=== PATIENT | male | born 1965 | race Caucasian/White ===

== ENCOUNTER 2017-06-29 09:55 | Inpatient (IN) | payer OTHER ==
[2017-06-29] MEDS ORDERED: KETOROLAC 15 MG/1 ML SDV IVP ONE (10:22)
[2017-06-29] MEDS ORDERED: KETAMINE 100 MG/10 ML SYR IVP ONE (10:22)
[2017-06-29] MEDS ORDERED: DEXAMETHASONE 4 MG/ML VIAL IVP ONE (10:22)
--- NOTE | 2017-06-29 10:22 | EDPHY ---
H & P Stated Complaint: L low back pain x 2 wks;seen @[facility] ED on Sat for same;felt pop in back t - Personal History Current Tetanus Diphtheria and Acellular Pertussis (TDAP): Yes Tetanus Vaccine Date: 2005 - Medical/Surgical History Other PMH: chronic back pain (followed at [facility]). S/P diskectomy - Social History Smoking Status: Former smoker Time Seen by Provider: 06/29/17 10:13 HPI/ROS: CHIEF COMPLAINT: New onset left low back pain left lower extremity radiculopathy HISTORY OF PRESENT ILLNESS: 52-year-old male history of chronic intermittent low back pain, states that 2 days ago developed left paraspinous back pain, subsequently seen at [facility]. No incontinence or retention at that time, was discharged. 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 He has no incontinence or retention. No malignancy history. No abdominal pain. No direct trauma or fall. The pain is reproducible with range of motion. PRIMARY CARE PROVIDER:[facility] REVIEW OF SYSTEMS: A ten point review of systems was performed and is negative with the exception of the items mentioned in the HPI PAST MEDICAL & SURGICAL HISTORY: Intermittent chronic low back pain. Daily methadone therapy. SOCIAL HISTORY: Nonsmoker. No IV drug use. PHYSICAL EXAM (Prior to examination, patient consented to physical exam, hands were washed and my usual and customary physical exam procedures followed) 1) GENERAL: Well-developed, well-nourished, alert and oriented. Appears uncomfortable, crying. 2) HEAD: Normocephalic, atraumatic 3) HEENT: Pupils equal, round, reactive to light bilaterally. Sclera anicteric. Nasopharynx, oropharynx, clear, no lesions. 4) NECK: Full range of motion, no meningeal signs. 5) LUNGS: Clear auscultation bilaterally, no wheezes, no rhonchi, no retractions. 6) HEART: Regular rate and rhythm, no murmur, no heave, no gallop. 7) ABDOMEN: No guarding, no rebound, no focal tenderness, negative McBurney's, negative Corona's, negative Rovsing's, negative peritoneal sign, 8) MUSCULOSKELETAL: Moving all extremities, no focal areas of tenderness, no obvious trauma. No peripheral edema or discoloration. 9) BACK: [tender to palpation left paraspinous region. Positive straight leg lift test left side approximately 10 degrees. No CVA tenderness, no midline vertebral tenderness, no fluctuance, no step-off, no obvious trauma, no visual or palpable abnormality. Patella, Achilles reflexes intact to bilateral strength 5/5 10) SKIN: No rash, no petechiae. 11) NEURO: Awake, alert, and oriented to person, place and time. Answers questions appropriately. There were no obvious focal neurologic abnormalities. No cerebellar dysfunction. Normal steady gait. Upper and lower extremities bilaterally with strength 5 / 5, reflexes 2+.. DIFFERENTIAL DIAGNOSIS: In no particular order, including but not limited to, fracture, sprain/strain, cauda equina, spinal infectious etiology. (Ambrocio Gray) Constitutional: Initial Vital Signs Temperature (C) 36.6 C 06/29/17 09:56 Heart Rate 108 H 06/29/17 09:56 Respiratory Rate 22 H 06/29/17 09:56 Blood Pressure 147/114 H 06/29/17 09:56 O2 Sat (%) 97 06/29/17 09:56 O2 Delivery Mode Nasal Cannula O2 (L/minute) 2 Allergies/Adverse Reactions: No Known Allergies Allergy (Verified 06/29/17 09:56) Home Medications: Medication Instructions Recorded Methadone HCl [Methadone HCl 10 mg 5 mg PO BID 06/29/17 (*)] Medical Decision Making - Diagnostics Imaging Results: Imaging Impressions Lumbar Spine MRI 06/29/17 10:19 Impression: Multilevel degenerative disk and degenerative joint disease of the lumbar spine as detailed above by level. Most significant level is at L3-L4 where there is a left posterolateral protrusion and annular tear causing moderate to severe left neural foraminal encroachment in addition to an extruded free fragment extending superior to the left posterior aspect of the L2 vertebral body compressing the L3 nerve root at the lateral recess. Results called and discussed with Ambrocio Gray on 06/29/2017, 13:07. ED Course/Re-evaluation: 10:20 a.m.: Patient appears quite uncomfortable has new onset of left lower extremity radiculopathy. Will plan on MRI, analgesia. Care of patient under supervision of secondary supervising physician Dr Bernal . 1:15 p.m.: The patient was re-evaluated with serial examinations. Given his history of methadone use we discussed some of the challenges and pain control. He has been given multiple medications emergency department including Toradol, ketamine, Valium, continues to complain of exquisite amount of pain, unable to ambulate or roll over in bed secondary to pain. He does not feel he can be discharged secondary to pain. We discussed admission for intractable low back pain. 1:30 p.m.: Consultation with neurosurgical PA who recommends admission to hospitalist and Dr. Fermín Hernandez will consult 1:35 p.m.: Consultation with hospitalist, Pastora, admit to Dr. Franklin (Ambrcoio Gray) I did not see this patient while he was in the emergency department. However his care was discussed with the PA while the patient was in the department. I agree with treatment plan and management. I a.m. the secondary supervising physician (Mario Bernal) - Data Points Laboratory Results: Laboratory Results 06/29/17 10:52 06/29/17 10:52 06/29/17 06/29/17 10:52 10:52 WBC 6.78 10^3/uL 10^3/uL (3.80-9.50) RBC 5.14 10^6/uL 10^6/uL (4.40-6.38) Hgb 15.7 g/dL g/dL (13.7-17.5) Hct 47.9 % % (40.0-51.0) MCV 93.2 fL fL (81.5-99.8) MCH 30.5 pg pg (27.9-34.1) MCHC 32.8 g/dL g/dL (32.4-36.7) RDW 13.3 % % (11.5-15.2) Plt Count 263 10^3/uL 10^3/uL (150-400) MPV 11.1 fL fL (8.7-11.7) Neut % (Auto) 65.8 % % (39.3-74.2) Lymph % (Auto) 21.7 % % (15.0-45.0) Mccone % (Auto) 8.0 % % (4.5-13.0) Eos % (Auto) 2.9 % % (0.6-7.6) Baso % (Auto) 1.2 % % (0.3-1.7) Nucleat RBC Rel Count 0.0 % % (0.0-0.2) Absolute Neuts (auto) 4.46 10^3/uL 10^3/uL (1.70-6.50) Absolute Lymphs (auto) 1.47 10^3/uL 10^3/uL (1.00-3.00) Absolute Monos (auto) 0.54 10^3/uL 10^3/uL (0.30-0.80) Absolute Eos (auto) 0.20 10^3/uL 10^3/uL (0.03-0.40) Absolute Basos (auto) 0.08 10^3/uL 10^3/uL (0.02-0.10) Absolute Nucleated RBC 0.00 10^3/uL 10^3/uL (0-0.01) Immature Gran % 0.4 % % (0.0-1.1) Immature Gran # 0.03 10^3/uL 10^3/uL (0.00-0.10) Sodium 143 mEq/L mEq/L (134-144) Potassium 4.5 mEq/L mEq/L (3.5-5.2) Chloride 104 mEq/L mEq/L (97-110) Carbon Dioxide 26 mEq/l mEq/l (22-31) Anion Gap 13 mEq/L mEq/L (8-16) BUN 24 mg/dL H mg/dL (7-23) Creatinine 0.9 mg/dL mg/dL (0.7-1.3) Estimated GFR > 60 Glucose 96 mg/dL mg/dL (70-100) Calcium 9.6 mg/dL mg/dL (8.5-10.4) Medications Given: Discontinued Medications Dexamethasone (Decadron Injection) 8 mg IVP EDNOW ONE Stop: 06/29/17 10:23 Last Admin: 06/29/17 10:35 Dose: 8 mg Diazepam (Valium Injection) 5 mg IVP EDNOW ONE Stop: 06/29/17 11:19 Last Admin: 06/29/17 11:24 Dose: 5 mg Ketamine HCl (Ketamine) 18.1 mg 0.2 mg/kg (18.1 mg) IVP EDNOW ONE Stop: 06/29/17 10:23 Last Admin: 06/29/17 10:35 Dose: 18.1 mg Ketorolac Tromethamine (Toradol) 15 mg IVP EDNOW ONE Stop: 06/29/17 10:23 Last Admin: 06/29/17 10:35 Dose: 15 mg Departure - Departure Disposition: [facility] Acute Clinical Impression: Intractable low back pain Condition: Fair
[2017-06-29] MEDS ORDERED: DIAZEPAM 10 MG/2 ML SYR IVP ONE (11:18)
[2017-06-29] MEDS ORDERED: ONDANSETRON 4 MG/2 ML VIAL IVP PRN (13:52)
[2017-06-29] MEDS ORDERED: ONDANSETRON DISINTEGRATING 4 MG TAB PO PRN (13:52)
[2017-06-29] MEDS ORDERED: HYDROmorphONE/DILAUDID 1 MG/ML INJ IVP PRN (13:52)
[2017-06-29] MEDS ORDERED: ACETAMINOPHEN 325 MG TAB PO SCH (14:15)
[2017-06-29] MEDS ORDERED: KETOROLAC 15 MG/1 ML SDV IVP SCH (15:00)
[2017-06-29 15:06] LABS: % IMMATURE GRANULYOCYTES 0.4 % (0.0-1.1); ABSOLUTE IMMATURE GRANULOCYTES 0.03 10^3/uL (0.00-0.10); ADD DIFF? NO; ADD MORPH? NO; ADD SCAN? NO; ATYPICAL LYMPHOCYTE FLAG 0 (0-99); FRAGMENT RBC FLAG 0 (0-99); HEMATOCRIT 47.9 % (40.0-51.0); HEMOGLOBIN 15.7 g/dL (13.7-17.5); LEFT SHIFT FLG 0 (0-99); LIPEMIA HEMOLYSIS FLAG 80 (0-99); MEAN CELL HEMOGLOBIN 30.5 pg (27.9-34.1); MEAN CELL HEMOGLOBIN CONCENTR. 32.8 g/dL (32.4-36.7); MEAN CELL VOLUME 93.2 fL (81.5-99.8); MEAN PLATELET VOLUME 11.1 fL (8.7-11.7); PLATELET CLUMPS FLAG 20 (0-99); PLATELET COUNT 263 10^3/uL (150-400); RED BLOOD CELL COUNT 5.14 10^6/uL (4.40-6.38); RED CELL DISTRIBUTION WIDTH 13.3 % (11.5-15.2)
[2017-06-29 15:12] LABS: ANION GAP 13 mEq/L (8-16); CALCIUM 9.6 mg/dL (8.5-10.4); CARBON DIOXIDE 26 mEq/l (22-31); CHLORIDE 104 mEq/L (97-110); CREATININE 0.9 mg/dL (0.7-1.3); GLOMERULAR FILTRATION RATE > 60; GLUCOSE 96 mg/dL (70-100); POTASSIUM 4.5 mEq/L (3.5-5.2); SODIUM 143 mEq/L (134-144)
[2017-06-29] MEDS: ACETAMINOPHEN 500 MG TAB PO SCH ×2 (15:34→22:24)
[2017-06-29] MEDS ORDERED: fentaNYL 100 MCG/2 ML INJ IVP PRN (16:00)
[2017-06-29] MEDS ORDERED: NS 1,000 ML IV SCH (16:00)
[2017-06-29] MEDS ORDERED: NALOXONE HCL 0.4 MG/ML INJ IVP PRN (16:00)
[2017-06-29] MEDS ORDERED: GABAPENTIN 300 MG CAP PO SCH (16:00)
--- NOTE | 2017-06-29 16:02 | PDGENHP ---
History and Physical - Chief Complaint back pain - History of Present Illness 52 yo male with h/o chronic low back pain presented to ED with increasing back pain and radicular symptoms. He had a discectomy at L5-S1 in 2002 and he thinks the doctor "screwed it up". He developed arachnoiditis and chronic pain. Last Thursday, he got out of bed and felt something pop, followed by severe back spasms. He went to [facility] and was discharged without imaging. He has developed pain in his left thigh, burning sensation, feels like needles in his skin. He also reports numbness and weakness in his left leg. His left leg gave out while going up some stairs and he fell. 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 He continues to have burning sensation going down his left leg. Denies loss of control of bowel or bladder. No fevers/chills. No CP, SOB, abdominal pain, N/V/D. History Information - Allergies/Home Medication List Allergies/Adverse Reactions: No Known Allergies Allergy (Verified 06/29/17 09:56) Home Medications: Methadone HCl [Methadone HCl 10 mg (*)] 5 mg PO BID 06/29/17 [Last Taken ] I have personally reviewed and updated: family history, medical history, social history, surgical history - Past Medical History Additional medical history: chronic back pain, on methadone 5 mg bid - Surgical History Additional surgical history: L5-S1 discectomy 2002 - Family History Positive for: non-pertinent - Social History Smoking Status: Former smoker Additional social history: Lives independently, . and daughter at bedside Review of Systems Review of Systems: ROS: 10pt was reviewed & negative except for what was stated in HPI & below Physical Exam Physical Exam: Temp Pulse Resp BP Pulse Ox 36.8 C 85 14 142/96 H 91 L 06/29/17 15:15 06/29/17 15:15 06/29/17 15:15 06/29/17 15:15 06/29/17 15:15 O2 (L/minute) 2 Constitutional: uncomfortable Eyes: PERRL Ears, Nose, Mouth, Throat: moist mucous membranes Cardiovascular: regular rate and rhythym Respiratory: no respiratory distress, clear to auscultation Gastrointestinal: normoactive bowel sounds, soft, non-tender abdomen Skin: warm Musculoskeletal: other (decreased strength LLE, decreased patellar reflex, but present 1+) Neurologic: AAOx3 Psychiatric: interacting appropriately Lab Data & Imaging Review 06/29/17 10:52 06/29/17 10:52 WBC 6.78 10^3/uL (3.80-9.50) 06/29/17 10:52 RBC 5.14 10^6/uL (4.40-6.38) 06/29/17 10:52 Hgb 15.7 g/dL (13.7-17.5) 06/29/17 10:52 Hct 47.9 % (40.0-51.0) 06/29/17 10:52 MCV 93.2 fL (81.5-99.8) 06/29/17 10:52 MCH 30.5 pg (27.9-34.1) 06/29/17 10:52 MCHC 32.8 g/dL (32.4-36.7) 06/29/17 10:52 RDW 13.3 % (11.5-15.2) 06/29/17 10:52 Plt Count 263 10^3/uL (150-400) 06/29/17 10:52 MPV 11.1 fL (8.7-11.7) 06/29/17 10:52 Neut % (Auto) 65.8 % (39.3-74.2) 06/29/17 10:52 Lymph % (Auto) 21.7 % (15.0-45.0) 06/29/17 10:52 Bradley % (Auto) 8.0 % (4.5-13.0) 06/29/17 10:52 Eos % (Auto) 2.9 % (0.6-7.6) 06/29/17 10:52 Baso % (Auto) 1.2 % (0.3-1.7) 06/29/17 10:52 Nucleat RBC Rel Count 0.0 % (0.0-0.2) 06/29/17 10:52 Absolute Neuts (auto) 4.46 10^3/uL (1.70-6.50) 06/29/17 10:52 Absolute Lymphs (auto) 1.47 10^3/uL (1.00-3.00) 06/29/17 10:52 Absolute Monos (auto) 0.54 10^3/uL (0.30-0.80) 06/29/17 10:52 Absolute Eos (auto) 0.20 10^3/uL (0.03-0.40) 06/29/17 10:52 Absolute Basos (auto) 0.08 10^3/uL (0.02-0.10) 06/29/17 10:52 Absolute Nucleated RBC 0.00 10^3/uL (0-0.01) 06/29/17 10:52 Immature Gran % 0.4 % (0.0-1.1) 06/29/17 10:52 Immature Gran # 0.03 10^3/uL (0.00-0.10) 06/29/17 10:52 Sodium 143 mEq/L (134-144) 06/29/17 10:52 Potassium 4.5 mEq/L (3.5-5.2) 06/29/17 10:52 Chloride 104 mEq/L (97-110) 06/29/17 10:52 Carbon Dioxide 26 mEq/l (22-31) 06/29/17 10:52 Anion Gap 13 mEq/L (8-16) 06/29/17 10:52 BUN 24 mg/dL (7-23) H 06/29/17 10:52 Creatinine 0.9 mg/dL (0.7-1.3) 06/29/17 10:52 Estimated GFR > 60 06/29/17 10:52 Glucose 96 mg/dL (70-100) 06/29/17 10:52 Calcium 9.6 mg/dL (8.5-10.4) 06/29/17 10:52 Assessment & Plan Assessment: Intractable low back pain (Acute) with radiculopathy - severe neural foraminal narrowing on MRI with an extruded free fragment. Neurosurgery consulted. Plan is for epidural for pain control and if not successful, they will proceed with operative intervention. NPO for now with IVF's. Pain control with home methadone dose, IV dilaudid. Will add Lyrica. He has not tolerated Gabapentin in the past. Full code Dispo - admit to inpt, will require >48 hrs hospitalization for ongoing management of acute radicular pain and possible surgical intervention
--- NOTE | 2017-06-29 16:43 | ASMTCASEMG ---
Living Arrangements What is your living Answers: With Spouse arrangement? Who do you live with? Type Of Residence What kind of residence do Answers: House you live in? Discharge Plan Comments Coordination Status Comments Notes: Pt is a 52 y/o man admitted for intractable low back pain. Therapies have been ordered. CM met w/ pt and family for dispo planning. Pt is a [place] and has [facility]. CM was informed that if he need auth we would need to call the [facility] and they would set up the auth. Needs are TBD at this time. CM available for changes. Plan: TBD Date Signed: 06/29/2017 04:43 PM Electronically Signed By:AKOSUA Morocho
[2017-06-29] MEDS ORDERED: TRIAMCINOLONE ACETONIDE 200 MG/5 ML MDV IM ONE (17:01)
[2017-06-29] MEDS ORDERED: LIDOCAINE 1% 300 MG/30 ML SDV ONE (17:01)
[2017-06-29] MEDS ORDERED: IOPAMIDOL (ISOVUE-M 300) 15 ML VIAL ONE (17:01)
[2017-06-29] MEDS ORDERED: fentaNYL 100 MCG/2 ML INJ ONE (17:23)
[2017-06-29] MEDS: D5W 1/2 NS W/ 20 KCl/L 1,000 ML IV SCH ×2 (18:14→22:26)
[2017-06-29] MEDS: HYDROmorphONE/DILAUDID 1 MG/ML INJ IVP PRN ×2 (18:17→23:56)
[2017-06-29] MEDS: methylPREDNISolone 4 MG TAB PO SCH ×2 (18:17→22:25)
[2017-06-29] MEDS ORDERED: methylPREDNISolone 4 MG TAB PO SCH (19:00)
[2017-06-29] MEDS: PREGABALIN 50 MG CAP PO SCH (22:24)
[2017-06-29] MEDS: METHADONE HCL 10 MG TAB PO SCH (22:25)
--- NOTE | 2017-06-30 02:22 | GCON ---
[f rep st] CONSULTATION CONSULTATION/HISTORY AND PHYSICAL. DATE OF CONSULTATION: 06/29/2017 Patient seen in the emergency department on 06/29/2017 in room 10 at 1420. CHIEF COMPLAINT: Left lower extremity pain that started 2 weeks ago. 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 Two weeks ago, he was in a storage unit when he was moving some light boxes 5-10 pounds, was doing some twisting and bending, and he felt some sudden onset of pain in his lower back. This last Thursday, his back pain had increased when he woke up in the morning. It hurt him so bad that he went to the emergency department at [facility]. They gave him some medicine and discharged him. There was no imaging at that time. Over the last 2 days, he has had worsening numbness and also has worsening left lower extremity pain, to the point where he is unable to walk on the left leg due to pain. He describes pain in his left buttock, left lateral thigh, and radiates into the anterior thigh. He is unable to walk due to the pain in the left lower extremity. He denies any right lower extremity symptoms. No loss of bowel or bladder control. No saddle numbness or numbness in his groin. He denies any upper extremity complaints such as numbness, tingling, weakness, or pain. No chest pain. No shortness of breath. No abdominal complaints. PAST MEDICAL HISTORY: 1. Significant for low back issues with prior L5-S1 surgery. 2. Chronic pain for which the patient takes methadone. PAST SURGICAL HISTORY: 1. L5-S1 microdiskectomy x2. 2. Left ACL reconstruction. 3. Compartment syndrome to forearm. MEDICATIONS: Methadone. ALLERGIES: No known drug allergies. FAMILY HISTORY: Reviewed and noncontributory. No history of stroke immediately. SOCIAL HISTORY: The patient is . Has 1 child. He does not smoke, does not drink any alcohol, and does not use any illicit drugs. IMMUNIZATIONS: Reported up to date. TRAVEL: No recent travel. REVIEW OF SYSTEMS: A 10-point review of systems is otherwise negative unless noted in HPI. PHYSICAL EXAMINATION: GENERAL: This is an awake, alert and oriented male, in no acute distress. MOST RECENT VITAL SIGNS: 128/88, MAP of 101, 92 heart rate , 16 respirations, 97% on 2 L, temperature 36.8. HEENT: Head is normocephalic , atraumatic. Pupils are equal, round, and reactive to light. EOMs intact. Full visual landry by confrontation. Ears are patent. Nose is patent. NECK: Soft and supple. No midline tenderness. Full range of motion in flexion, extension, lateral bending, and rotation. RESPIRATORY and CARDIAC: Deferred. ABDOMEN: Soft, nontender. No peritoneal signs. and RECTAL: Deferred. NEURO: Patient is awake, alert, oriented x3. Memory is intact to immediate, past, and current events. Speech: No aphasia, dysarthria, dysphonia. Cranial nerves 2-12 grossly intact. Motor: Patient has 5/5 strength in all muscle groups of bilateral upper and lower extremities to include deltoids, biceps, triceps, brachioradialis, wrist flexors and extensors, nub card tender, intrinsic fingers, iliopsoas, quadriceps, hamstring, plantar flexion, dorsiflexion, and EHL testing , with the exception of left iliopsoas and quad at 4+ out of 5. Sensation is grossly intact to light touch throughout all dermatome distributions upper and lower extremities. Negative straight leg raise. Negative DONALD test. Reflexes of biceps, triceps, brachioradialis, knee jerk, and ankle jerk are 2+/ 4. Toes are downgoing bilaterally. Valenzuela's negative. Babinski negative. No evidence of clonus. MEDICAL DECISION MAKING/DIAGNOSTIC STUDIES: Laboratory tests pending. Diagnostic studies: MRI lumbar spine obtained 06/29/2017 at 10:19 a.m. shows multilevel degenerative disk disease, degenerative joint disease in lumbar spine as detailed in report. Most significant disease is at L3-4 on the left side, where there is a posterolateral protrusion and annular tear causing moderate to severe left neural foraminal encroachment, and this goes to the left L2 body that compresses the L3 nerve root in the lateral recess. IMPRESSION: 1. Lower back pain. 2. Herniated disk, left side, compressing L3 nerve root in the lateral recess. PLAN AND DISCUSSION: The patient is a 52-year-old male, who presented to the emergency department today after having approximately 2 weeks of pain that started when he was moving some boxes about 2 weeks ago. He states they were about 5-10 pounds in weight, but he was doing some bending and twisting. He felt onset of back pain at that time. This last Thursday, his back pain worsened where he went to the [facility] ER. In the [facility] ER, they gave him some medication for pain but no imaging was performed. He comes in today with left lower extremity weakness, numbness, and pain. An MRI demonstrated a herniated disk on the left side compressing the left L3 nerve root. We will try an epidural steroid injection on the left side of the left L3 nerve. He may require microdiskectomy at this time. We will see our response to the injection first. He should not be on any anticoagulation at this time. We made him n.p.o. until Interventional Radiology can see him to organize the epidural steroid injection, hopefully later today. All questions and concerns were answered. Patient was seen with Dr Prabhakar. /[id number]/MODL MTDD
[2017-06-30] MEDS: HYDROmorphONE/DILAUDID 1 MG/ML INJ IVP PRN ×6 (04:42→21:54)
[2017-06-30 06:12] LABS: ANION GAP 12 mEq/L (8-16); CALCIUM 9.3 mg/dL (8.5-10.4); CARBON DIOXIDE 25 mEq/l (22-31); CHLORIDE 105 mEq/L (97-110); CREATININE 0.7 mg/dL (0.7-1.3); GLOMERULAR FILTRATION RATE > 60; GLUCOSE 140 mg/dL (70-100); POTASSIUM 4.9 mEq/L (3.5-5.2); SODIUM 142 mEq/L (134-144)
[2017-06-30] MEDS: ACETAMINOPHEN 500 MG TAB PO SCH ×3 (06:43→20:31)
--- NOTE | 2017-06-30 08:20 | NEUSURGPN ---
Assessment/Plan: Assessment: 52 yo male with a new HNP compressing the left L3 nerve in the lateral recess Plan: -pt with HNP compressing L3 on left-pt had injection last night and states is a bit better overall -will continue follow -PT/OT pending this am -we recommended to see how he does this am -if he is not improved to the point where he can be dc to recover and give the 10-14 days to get the full effect of the injection he may need surgery -recommend to continue with the gabapentin as well as the oral steroids -d/w Dr Prabhakar -will check on patient later today to see if surgery is needed -pt understands and agrees -call NS with any changes or issues Subjective: Awake and alert. NAD. Eating/drinking and voiding. No f/c/n/v/d. No mayen/neck/ chest/abd or gu complaints. Pt with continued but slightly improved LLE pain Objective: AAO x 3, PERRLA/EOMI no droop CN 2-12 grossly intact +lt touch 5/5 BUE/BLE = except 4+->5-/5 to left IP Neuro Check Frequency: per routine Urinary Catheter in Place: No - Physician Discussed Patient with : Aki Patient Seen by : Aki Neurosurgery Physical Exam - Vitals, I&O, Labs I and O 06/29/17 06/30/17 07/01/17 05:59 05:59 05:59 Intake Total 100 Balance 100 Weight 86.6 kg Intake: IV Intake (ml) 100 Other: Intake Quantity Yes Sufficient Vital Signs Temp Pulse Resp BP Pulse Ox 36.7 C 88 12 100/54 L 91 L 06/30/17 07:46 06/30/17 07:46 06/30/17 07:46 06/30/17 07:46 06/30/17 07:46 Laboratory Results 06/30/17 04:34 ICD10 Worksheet Patient Problems: Problems Problem Status Onset Intractable low back pain Acute
--- NOTE | 2017-06-30 08:27 | HOSPPROG ---
Hospitalist Progress Note Assessment/Plan: Herniated disc with extruded fragment, L3 nerve root compression and radiculopathy. Pt has h/o chronic LBP with prior L5-S1 spinal fusion complicated by arachnoiditis. Admitted for pain control and definitive management. -S/P epidural spinal steroid injection last night, though not significantly improved -neurosurgery following and plans for operative intervention if pain not controlled with steroid injection -will make NPO at midnight as he may need surgery -pain control with home methadone dose, addition of lyrica (doesn't tolerate gabapentin), scheduled tylenol, prn dilaudid -oral methylprednisolone taper -PT/OT evals today Full code DVT PPLX - SCD's, holding lovenox due to possible surgical needs Dispo - cont inpt Subjective: Pt had steroid injection last night. He is more comfortable lying flat on his back, but has significant symptoms with ambulation. Increased pain , numbness, shooting pains into his left leg. Doesn't feel significant improvement after injection. Objective: Vital Signs Temp Pulse Resp BP Pulse Ox 36.7 C 88 12 100/54 L 91 L 06/30/17 07:46 06/30/17 07:46 06/30/17 07:46 06/30/17 07:46 06/30/17 07:46 Laboratory Results 06/30/17 04:34 06/29/17 06/30/17 07/01/17 05:59 05:59 05:59 Intake Total 100 Balance 100 - Physical Exam Constitutional: no apparent distress Eyes: PERRL Ears, Nose, Mouth, Throat: moist mucous membranes Cardiovascular: regular rate and rhythym Respiratory: no respiratory distress Gastrointestinal: normoactive bowel sounds Skin: warm Musculoskeletal: other (LLE with 3/5 proximal muscle strength) Psychiatric: interacting appropriately ICD10 Worksheet Patient Problems: Problems Problem Status Onset Intractable low back pain Acute
[2017-06-30] MEDS ORDERED: ENOXAPARIN 40 MG/0.4 ML SYR SC SCH (09:00)
[2017-06-30] MEDS: METHADONE HCL 10 MG TAB PO SCH ×2 (09:35→20:30)
[2017-06-30] MEDS: PREGABALIN 50 MG CAP PO SCH ×3 (09:36→20:30)
[2017-06-30] MEDS: methylPREDNISolone 4 MG TAB PO SCH ×7 (09:37→20:30)
[2017-06-30] MEDS ORDERED: ceFAZolin 2 GM/SWFI 2 GM/20 ML SYR IVP ONE (16:00)
--- NOTE | 2017-06-30 17:28 | PDMN ---
Medical Necessity Medical necessity: Patient meets inpatient criteria per physician note and [facility] M -63 Back Pain (intractable back pain w/radiculopathy d/t herniated disc w/ extruded fragment and L3 nerve root compression; no significant improvement after epidural steroid injection; LOS will be > 2 midnights for surgery, ongoing pain control w/IV dilaudid for breakthrough pain, po steroid taper, PT/ OT evals.)
[2017-06-30] MEDS ORDERED: methylPREDNISolone 4 MG TAB PO SCH (21:00)
[2017-07-01] MEDS: HYDROmorphONE/DILAUDID 1 MG/ML INJ IVP PRN ×4 (02:02→12:49)
[2017-07-01] MEDS ORDERED: ceFAZolin 2 GM/SWFI 2 GM/20 ML SYR IVP ONE (06:00)
[2017-07-01] MEDS: ACETAMINOPHEN 500 MG TAB PO SCH ×4 (06:05→23:35)
[2017-07-01] MEDS: methylPREDNISolone 4 MG TAB PO SCH ×3 (08:44→12:50)
[2017-07-01] MEDS: PREGABALIN 50 MG CAP PO SCH ×3 (08:51→20:32)
[2017-07-01] MEDS: METHADONE HCL 10 MG TAB PO SCH ×2 (09:00→20:32)
--- NOTE | 2017-07-01 11:44 | NEUSURGPN ---
<MagdaMarie - Last Filed: 07/01/17 11:41> Assessment/Plan: Assessment/Plan: Assessment: 52 yo male with a new HNP compressing the left L3 nerve in the lateral recess Plan: -pt with HNP compressing L3 on left-pt had injection and was bit better but still confined to bed. -TO OR this afternoon with Dr. Prabhakar for L3/4 left microdiscectomy -Consented, all risks, benefits, and alternatives discussed -NPO -Preop orders in and patient marked -PT/OT -Continue medications as directed -d/w Dr Prabhakar -Dispo- Home tomorrow if doing well and therapy clears -call NS with any changes or issues Subjective: Patient continues with intractable left leg pain and weakness. Ready for OR later today. Objective: AAO x 3, PERRLA/EOMI no droop CN 2-12 grossly intact +lt touch 5/5 BUE/BLE = except 4+->5-/5 to left IP - Physician Discussed Patient with Dr.: Prabhakar Neurosurgery Physical Exam - Vitals, I&O, Labs I and O 06/30/17 07/01/17 07/02/17 05:59 05:59 05:59 Intake Total 300 Balance 300 Intake: Oral (ml) 300 Other: Intake Quantity Yes Sufficient Number of Voids Toilet 2 Vital Signs Temp Pulse Resp BP Pulse Ox 36.8 C 76 14 112/68 92 07/01/17 08:00 07/01/17 08:00 07/01/17 08:00 07/01/17 08:00 07/01/17 08:00 ICD10 Worksheet Patient Problems: Problems Problem Status Onset Intractable low back pain Acute <Antione Prabhakar - Last Filed: 07/01/17 14:51> Assessment/Plan: I have met with the patient. He has left leg pain and weakness. There is a left L3/4 disc herniation with free fragment which has migrated cranially behind the L3 VB. Will approach from the left L2/3 versus L3/4 level to reach the disc herniation, depending in it's accessibility. Risks and benefits of surgery described and he is willing to proceed. Consents signed and site marked. Neurosurgery Physical Exam - Vitals, I&O, Labs I and O 06/30/17 07/01/17 07/02/17 05:59 05:59 05:59 Intake Total 300 Output Total 400 Balance 300 -400 Intake: Oral (ml) 300 Output: Urine (ml) 400 Urinal 400 Other: Intake Quantity Yes Sufficient Number of Voids Toilet 2 Urinal 1 Vital Signs Temp Pulse Resp BP Pulse Ox 36.8 C 82 14 126/88 H 91 L 07/01/17 14:47 07/01/17 14:47 07/01/17 14:47 07/01/17 14:47 07/01/17 14:47
[2017-07-01] MEDS ORDERED: BACITRACIN ZINC 14.2 GM OINTTUBE TP ONE (13:29)
[2017-07-01] MEDS ORDERED: BUPIVACAINE 0.25% 30 ML SDV ONE ×2 (13:29→13:30)
[2017-07-01] MEDS ORDERED: THROMBIN (BOVINE) 20,000 UNIT VIAL TP ONE (13:30)
[2017-07-01] MEDS ORDERED: BACITRACIN 50,000 UNITS/10 ML SYR IRR ONE (13:31)
[2017-07-01] MEDS ORDERED: ceFAZolin 2 GM/SWFI 20 ML SYR IVP ONE (14:50)
[2017-07-01] MEDS ORDERED: MIDAZOLAM 2 MG/2 ML VIAL IVP ONE (14:54)
--- NOTE | 2017-07-01 14:56 | PDANEPAE ---
ANE Past Medical History - Cardiovascular History Hx Hypertension: No Hx Arrhythmias: No Hx Chest Pain: No Hx Coronary Artery / Peripheral Vascular Disease: No Hx CHF / Valvular Disease: No Hx Palpitations: No - Pulmonary History Hx COPD: No Hx Asthma/Reactive Airway Disease: No Hx Recent Upper Respiratory Infection: No Hx Oxygen in Use at Home: No Hx Sleep Apnea: No Sleep Apnea Screening Result - Last Documented: Negative - Endocrine History Hx Diabetes: No Hypothyroid: No Hyperthyroid: No Obesity: moderate - Chronic Pain History Chronic Pain: Yes (CHRONIC LOWER BACK PAIN) ANE Review of Systems Review of Systems: ANE Patient History - Allergies Allergies/Adverse Reactions: No Known Allergies Allergy (Verified 06/29/17 09:56) - Home Medications Home Medications: Methadone HCl [Methadone HCl 10 mg (*)] 5 mg PO BID 06/29/17 [Last Taken ] - NPO status NPO Since - Liquids (Date): 07/01/17 NPO Since - Liquids (Time): 00:00 NPO Since - Solids (Date): 07/01/17 NPO Since - Solids (Time): 00:00 - Anes Hx Anes Hx: no prior problems - Smoking Hx Smoking Status: Former smoker Marijuana use: No - Alcohol Use Alcohol Use: None - Family Anes Hx Family Anes Hx: neg - N/A ANE Labs/Vital Signs - Labs Result Diagrams: 06/29/17 10:52 06/30/17 04:34 - Vital Signs Blood Pressure: 126/88 Heart Rate: 82 Respiratory Rate: 14 O2 Sat (%): 91 Height: 165.1 cm Weight: 86.6 kg ANE Physical Exam - Airway Neck exam: FROM Mallampati Score: Class 2 Mouth exam: normal dental/mouth exam - Pulmonary Pulmonary: no respiratory distress, no rales or rhonchi, clear to auscultation - Cardiovascular Cardiovascular: regular rate and rhythym, no murmur, rub, or gallop - ASA Status ASA Status: II ANE Anesthesia Plan Anesthesia Plan: general endotracheal anesthesia
[2017-07-01] MEDS ORDERED: DEXMEDETOMIDINE/NS 4MCG/ML 50 ML BTL IV ONE (15:11)
--- NOTE | 2017-07-01 15:11 | HOSPPROG ---
Hospitalist Progress Note Assessment/Plan: # Acute Herniated disc - clinically with radiculopathy. MRI lumbar (personally reviewed and interpreted) extruded fragment, L3 nerve root compression - Pt has h/o chronic LBP with prior L5-S1 spinal fusion complicated by arachnoiditis- remains symptomatic after steroid injection - WBC 6.7 oxygen saturations 95% on RA -plan to OR today with NSG -NPO -cont home methadone dose - cont lyrica , tylenol, prn dilaudid -oral methylprednisolone taper -PT/OT #Full code # DVT PPLX - SCD's, holding lovenox due to possible surgical needs # Dispo - > 2MN as will require post-op monitoring prior to dc I have discussed the case with RN - current pain regimen is adequate Subjective: decreased sensation of the left foot Objective: Vital Signs Temp Pulse Resp BP Pulse Ox 36.8 C 82 14 126/88 H 91 L 07/01/17 15:05 07/01/17 15:05 07/01/17 15:05 07/01/17 15:05 07/01/17 15:05 06/30/17 07/01/17 07/02/17 05:59 05:59 05:59 Intake Total 300 Output Total 400 Balance 300 -400 - Physical Exam Constitutional: appears nourished Eyes: anicteric sclera Ears, Nose, Mouth, Throat: moist mucous membranes Cardiovascular: regular rate and rhythym Respiratory: no respiratory distress, no rales or rhonchi Gastrointestinal: normoactive bowel sounds Genitourinary: no bladder fullness Skin: warm Musculoskeletal: No asymmetric calves Neurologic: AAOx3, other (diminished sensation of the left LE) Psychiatric: interacting appropriately, not anxious Lymph, Heme, Immunologic: no cervical LAD ICD10 Worksheet Patient Problems: Problems Problem Status Onset Intractable low back pain Acute
[2017-07-01] MEDS ORDERED: PROPOFOL 200 MG/20 ML VIAL ONE (15:14)
[2017-07-01] MEDS ORDERED: KETAMINE 100 MG/10 ML SYR ONE (15:37)
[2017-07-01] MEDS ORDERED: MEPERIDINE 25 MG/ML SYR IVP PRN (15:58)
[2017-07-01] MEDS ORDERED: fentaNYL 100 MCG/2 ML INJ IVP PRN (15:58)
[2017-07-01] MEDS ORDERED: NALOXONE HCL 0.4 MG/ML INJ IVP PRN (15:58)
[2017-07-01] MEDS ORDERED: ONDANSETRON 4 MG/2 ML VIAL IVP PRN (15:58)
[2017-07-01] MEDS ORDERED: DIAZEPAM 10 MG/2 ML SYR IVP PRN (15:58)
[2017-07-01] MEDS ORDERED: ACETAMINOPHEN 500 MG TAB PO PRN (15:58)
[2017-07-01] MEDS ORDERED: OXYCODONE/APAP 5/325 TAB PO PRN (15:58)
[2017-07-01] MEDS ORDERED: LR 500 ML IV PRN (15:58)
[2017-07-01] MEDS ORDERED: PROMETHAZINE HCL 25 MG/ML INJ IVP PRN (15:58)
[2017-07-01] MEDS ORDERED: POLYETHYLENE GLYCOL 3350 17 GM PKT PO PRN (16:57)
[2017-07-01] MEDS ORDERED: diphenhydrAMINE 25 MG CAP PO PRN (16:57)
[2017-07-01] MEDS ORDERED: MAGNESIUM HYDROXIDE 30 ML UDCUP PO PRN (16:57)
[2017-07-01] MEDS ORDERED: BISACODYL 10 MG SUPP PR PRN (16:57)
[2017-07-01] MEDS ORDERED: METHOCARBAMOL 750 MG TAB PO PRN (16:57)
[2017-07-01] MEDS ORDERED: LACTULOSE 20 GM/30 ML UDCUP PO PRN (16:57)
[2017-07-01] MEDS ORDERED: NS W/ 20 KCl/L 1,000 ML IV SCH (17:00)
--- NOTE | 2017-07-01 17:09 | POSTANESTH ---
Post Anesthetic Evaluation Cardiovascular Status: Normal, Stable, Similar to Pre-Op Cond Respiratory Status: Normal, Stable, Similar to Pre-op Cond. Level of Consciousness/Mental Status: Can Participate in Eval, Moderately Sleepy Pain Control: Adequate, Prn Tx Ordered Nausea/Vomiting Control: Adequate, Prn Tx Ordered Complications Possibly Related to Anesthesia: None Noted
--- NOTE | 2017-07-01 17:11 | POSTOPPROG ---
Post Op Note Date of Operation: 07/01/17 Surgeon: Keke Rojas [facility] [employer] Manager: Gregg Rojas PA-C Anesthesiologist: Barbara Anesthesia: GET(General Endotracheal) Pre-op Diagnosis: lumbar disc herniation Post-op Diagnosis: same Indication: nerve compression, pain Procedure: L3/4 microdiscectomy Findings: disc herniation Inf/Abcess present in the surg proc area at time of surgery?: No Depth: Organ Space EBL: Minimal Complications: none Specimen(s): none PA Addendum - Addendum .: S: Pt in PACU, denies pain O: AAOx3 NAD VSS MAEx4 Motor 5/5 BUE/BLE +LT Incision cdi A: 52 yo M s/p L3/4 microdiscectomy P: Pain management Spine precautions OK to dc home tonight if doing well from NS standpoint PT/OT D/w Dr Prabhakar Call NS with any questions/concerns
[2017-07-01] MEDS: FAMOTIDINE 20 MG TAB PO SCH (20:33)
[2017-07-01] MEDS: SENNOSIDES/DOCUSATE SODIUM TAB PO SCH (20:33)
[2017-07-01] MEDS ORDERED: ceFAZolin 2 GM/DEXTROSE 100 ML IV SCH (22:00)
[2017-07-01] MEDS: ceFAZolin 2 GM/SWFI 2 GM/20 ML SYR IVP SCH (23:05)
--- NOTE | 2017-07-02 03:38 | GOP ---
[f rep st] OPERATIVE REPORT DATE OF OPERATION: 07/01/2017 SURGEON: Antione Prabhakar MD BALLISTIC EXPERT: ANUSHKA Alfredo. ANESTHESIA: General. PREOPERATIVE DIAGNOSIS: 1. Left-sided L3-L4 herniated nucleus pulposus, lateral recess stenosis, and free fragment migration behind the vertebral body of L3 and into the foramen with foraminal stenosis. 2. Left lower extremity radiculopathy. 3. Treatment refractory to nonoperative intervention. POSTOPERATIVE DIAGNOSIS: 1. Left-sided L3-L4 herniated nucleus pulposus, lateral recess stenosis, and free fragment migration behind the vertebral body of L3 and into the foramen with foraminal stenosis. 2. Left lower extremity radiculopathy. 3. Treatment refractory to nonoperative intervention. PROCEDURE PERFORMED: 1. Left-sided L3-L4 hemilaminotomy with lateral recess decompression, foraminotomy and nerve root decompression. 2. Use of intraoperative fluoroscopy, less than 1 hour physician time. FINDINGS: free fragment of disc per imaging SPECIMENS: None. ESTIMATED BLOOD LOSS: 40 mL. INDICATIONS: The patient is a 52-year-old gentleman, who presented with left lower extremity radiculopathy. The patient was excruciating and he was admitted and trialed and oral pain medications and an injection. The patient failed nonoperative management. After discussion of risks, benefits, and treatment alternatives, we decided to proceed forth with surgery as described above. He was consented for an L2-3 versus L3-4 diskectomy given the fact that the free fragment migration was behind the vertebral body of L3. DESCRIPTION OF PROCEDURE: The patient was brought to operating theater and underwent general endotracheal anesthesia without complications. He had Venodynes, SHERWIN hose, and appropriate lines placed by Anesthesia. He was flipped prone onto the Marck frame, and all bony prominences were inspected and padded. The lower lumbar region was prepped and draped in usual sterile surgical fashion. A time-out was completed per protocol and the patient received antibiotics within 1 hour of incision. Using lateral fluoroscopy and a spinal needle, we picked our entry point to the L2-L3 and L3-L4 levels. This was marked in the midline. The incision was infiltrated with Marcaine with epinephrine. The incision was taken down with the scalpel blade and then using monopolar, taken down the midline through the lumbodorsal fascia to the left side of the L2-L3 and L3-4 levels. Deep retractors were placed to maintain exposure. We confirmed our level using lateral fluoroscopy. At this point, we used the bur tip on the drill bit and Kerrison punches to drill down over the medial aspect of the pars of L3-L4. I left a 5 mm edge of bone on the lateral aspect of the pars. Then continued down medially to identify the ligamentum flavum. We resected ligamentum flavum and lateral recess with the Kerrison punches. We then reached around cranially and eventually were able to pull out to free fragments with large disk material. We also reached into the foramen and pulled out 1 more free fragment. Once we felt that everything was well decompressed to manual palpation, we obtained hemostasis with the bipolar. The wound was irrigated copiously with bacitracin irrigation and closed in multiple layers using Vicryl sutures for the deep layers and Dermabond for the skin. The patient's wounds were dressed sterilely. He was then flipped supine onto the transfer cart, where he was awakened, extubated and taken to the recovery room in stable condition. There were no complications and no noted changes on neuromonitoring throughout the procedure. COMPLICATIONS: None. /[id number]/MODL MTDD
[2017-07-02 04:59] VITALS: RESP 18; TEMP 98.1
[2017-07-02] MEDS: HYDROmorphONE/DILAUDID 1 MG/ML INJ IVP PRN (06:00)
[2017-07-02] MEDS: ACETAMINOPHEN 500 MG TAB PO SCH (06:00)
[2017-07-02 07:22] VITALS: BP 123/81; PULSE 81; O2SAT 94
[2017-07-02] MEDS ORDERED: methylPREDNISolone 4 MG TAB PO SCH (07:30)
[2017-07-02] MEDS: ceFAZolin 2 GM/SWFI 2 GM/20 ML SYR IVP SCH (07:39)
[2017-07-02] MEDS: FAMOTIDINE 20 MG TAB PO SCH (07:41)
[2017-07-02] MEDS: METHADONE HCL 10 MG TAB PO SCH (08:03)
[2017-07-02] MEDS: PREGABALIN 50 MG CAP PO SCH (08:03)
[2017-07-02] MEDS: SENNOSIDES/DOCUSATE SODIUM TAB PO SCH (08:04)
--- NOTE | 2017-07-02 08:42 | NEUSURGPN ---
Assessment/Plan: A: 52 yo M s/p L3/4 microdiscectomy POD#1 P: Pain management - pain is improved this AM Spine precautions OK to dc home from NS standpoint PT/OT D/w Dr Prabhakar Follow up in 2-3 weeks for post op visit Call NS with any questions/concerns Subjective: Pt resting in bed, states pre op pain is improved. Doing well, eager to go home. Objective: AAOx3 NAD VSS MAEx4 Motor 5/5 BLE +LT Incision dressed Urinary Catheter in Place: No - Physician Discussed Patient with : Aki Neurosurgery Physical Exam - Vitals, I&O, Labs I and O 07/01/17 07/02/17 07/03/17 05:59 05:59 05:59 Intake Total 300 1215 Output Total 440 Balance 300 775 Weight 86.6 kg Intake: Oral (ml) 300 565 IV Intake (ml) 650 Output: Urine (ml) 400 Urinal 400 Estimated Blood Loss (ml) 40 Other: Intake Quantity Yes Yes Sufficient Number of Voids Toilet 2 Urinal 1 Number of Stools Toilet 1 Urinal 1 Vital Signs Temp Pulse Resp BP Pulse Ox 36.7 C 81 18 123/81 H 94 07/02/17 07:21 07/02/17 07:21 07/02/17 07:21 07/02/17 07:21 07/02/17 07:21 ICD10 Worksheet Patient Problems: Problems Problem Status Onset Intractable low back pain Acute
[2017-07-02] MEDS ORDERED: ENOXAPARIN 40 MG/0.4 ML SYR SC SCH (09:00)
--- NOTE | 2017-07-02 12:37 | ASDISCHSUM ---
Discharge Information Plan Status:Home with No Needs Medically Cleared to Leave: Discharge Date:07/02/2017 11:54 AM CM D/C Disposition:Home, Routine, Self-Care ADT D/C Disposition:Home, Routine, Self-Care Projected Discharge Date:07/02/2017 11:54 AM Transportation at D/C: Discharge Delay Reason: Follow-Up Date:07/02/2017 11:54 AM Discharge Slot: Final Diagnosis: Placement Information Patient Contact Information Contact Name:DEIDRE Relationship: Address:[address] City:[facility] Phone: [facility]/Zip Code:[place] [address] Email: Financial Information Financial Class:HMO and PPO Plans Primary Plan Desc:[employer] Primary Plan Number:[id number] Secondary Plan Desc: Secondary Plan Number: Assessment Information [facility] Initial CM Assessment Living Arrangements What is your living Answers: With Spouse arrangement? Who do you live with? Type Of Residence What kind of residence do Answers: House you live in? Discharge Plan Comments Coordination Status Comments Notes: Pt is a 52 y/o man admitted for intractable low back pain. Therapies have been ordered. CM met w/ pt and family for dispo planning. Pt is a [place] and has [facility]. CM was informed that if he need auth we would need to call the [facility] and they would set up the auth. Needs are TBD at this time. CM available for changes. Plan: TBD Date Signed: 06/29/2017 04:43 PM Electronically Signed By:AKOSUA Morocho [facility] CM Progress Note CM Note CM Note Notes: Pt left for home before CM could speak to him. No needs identified. Date Signed: 07/02/2017 12:35 PM Electronically Signed By:Karen Simmons RN Intervention Information
--- NOTE | 2017-07-02 19:26 | GDS ---
[f rep st] DISCHARGE SUMMARY DISCHARGE DIAGNOSES: Include: 1. Acute herniated disc with radiculopathy, status post surgical intervention. 2. Chronic low back pain. HISTORY OF PRESENT ILLNESS: A 52-year-old male with a history of previous back surgeries, who presen ts with low back discomfort and left-sided numbness and weakness. For details of patient's initial p resentation, please see the History and Physical dated 06/29/2017. CONSULTATIVE SERVICES: Include Neurosurgery. PROCEDURES: On 07/01/2017, the patient underwent left-sided L3-L4 hemilaminotomy with microdiskectom y and nerve root decompression. HOSPITAL COURSE BY ISSUE: Acute herniated disk. The patient received initially a steroid injection without improvement in his radiculopathy. The patient was ultimately taken for surgical intervention . He is symptomatically markedly improved post-op. Has been seen by Neurosurgery, and cleared for d isposition. He will follow in the clinic in 2-3 weeks without any new medications added to his list. He has been given limitations related to bending, lifting and twisting by Neurosurgery. MEDICATIONS AT THE TIME OF TRANSFER: Please reference med rec printed on 07/02/2017. FOLLOWUP APPOINTMENTS: Include with Dr. Prabhakar in the next 2-3 weeks. PENDING STUDIES: At the time of this dictation, none. I spent greater than 30 minutes in the planning and coordination of this discharge. /[id number]/MODL
[2017-07-03] MEDS ORDERED: methylPREDNISolone 4 MG TAB PO SCH (07:30)
[2017-07-04] MEDS ORDERED: methylPREDNISolone 4 MG TAB PO SCH (07:30)
== END 2017-07-02 11:54 | disposition home or self-care (01) | DRG 517 ==
LOC: F3E 15:07 → OBSVTOIN 06-30 17:09
PROVIDERS: ADMIT Hospitalist; ATTEND Hospitalist
PROC: 01NB0ZZ Release Lumbar Nerve, Open Approach (ICD-10-PCS; principal; 2017-07-01 15:30)
PROC: 3E0T33Z Introduction of Anti-inflammatory into Peripheral Nerves and Plexi, Percutaneous Approach (ICD-10-PCS; 2017-07-02)
PROC: 3E0T3BZ Introduction of Anesthetic Agent into Peripheral Nerves and Plexi, Percutaneous Approach (ICD-10-PCS; 2017-07-02)
DX: M51.26 Other intervertebral disc displacement, lumbar region (principal); M48.061 Spinal stenosis, lumbar region without neurogenic claudication; M54.16 Radiculopathy, lumbar region; G89.29 Other chronic pain; Z87.891 Personal history of nicotine dependence
CPT/HCPCS: 96374; 97116-GP; 97161-GP; 97165-GO; 97530-GP; G0378; J0171; J0690; J1100; J1170; J1650; J1885; J2250; J2704; J3010; J3301; Q9967